=== PATIENT | female | born 1945 | race Caucasian/White ===

== ENCOUNTER 2019-06-18 08:49 | Outpatient (CLI) | payer OTHER ==
[~2019-06-18 08:49] MED LIST: CATAFLAM50 MG PO; FOSAMAX70 MG PO; PROTONIX40 MG PO; SIMVASTATIN40 MG PO; TRAMADOL HCL-AP1 TAB PO
[2019-06-18] MEDS ORDERED: OSPHENA60 MG PO (11:52)
[2019-06-18] MEDS ORDERED: CALTRATE 600+D1 EAC1 PO (11:53)
[2019-06-18] MEDS ORDERED: LIPITOR40 MG PO (11:53)
== END 2019-06-18 10:22 | disposition home or self-care (01) ==
LOC: RAD 08:49 → LAB 08:49
DX: D64.89 Other specified anemias (principal); E88.89 Other specified metabolic disorders; D68.8 Other specified coagulation defects; N39.0 Urinary tract infection, site not specified; Z22.322 Carrier or suspected carrier of Methicillin resistant Staphylococcus aureus; E83.42 Hypomagnesemia; Z76.89 Persons encountering health services in other specified circumstances; I49.8 Other specified cardiac arrhythmias

== ENCOUNTER 2019-07-02 07:52 | Outpatient (CLI) | payer OTHER ==
[~2019-07-02 07:52] MED LIST changes: +CALTRATE 600+D1 EAC1 PO; +LIPITOR40 MG PO; +OSPHENA60 MG PO
== END 2019-07-02 08:15 | disposition home or self-care (01) ==
LOC: LAB 07:52 → RAD 07:52 → LAB 08:15
DX: D64.89 Other specified anemias (principal); E88.89 Other specified metabolic disorders; N39.0 Urinary tract infection, site not specified; D68.8 Other specified coagulation defects; Z22.322 Carrier or suspected carrier of Methicillin resistant Staphylococcus aureus; M79.651 Pain in right thigh; M79.604 Pain in right leg; M17.11 Unilateral primary osteoarthritis, right knee; I49.8 Other specified cardiac arrhythmias

== ENCOUNTER 2019-07-12 09:46 | Inpatient (IN) | payer OTHER ==
[~2019-07-12] VITALS: Ht 152.4 cm; Wt 59.0 kg
== END 2019-07-23 15:39 | disposition home or self-care (01) | DRG 470 ==
LOC: O/R 07-20 05:09 → SURG 07-20 05:09 → SURH 07-20 08:00 → SURG 07-20 14:15
PROVIDERS: ADMIT Orthopaedic Surgery
PROC: 0MNN0ZZ Release Right Knee Bursa and Ligament, Open Approach (ICD-10-PCS; 2019-07-20)
PROC: 0SRC0J9 Replacement of Right Knee Joint with Synthetic Substitute, Cemented, Open Approach (ICD-10-PCS; principal; 2019-07-20 08:00)
DX: M17.11 Unilateral primary osteoarthritis, right knee (principal)

== ENCOUNTER 2019-07-26 07:44 | Emergency (ER) | payer OTHER ==
[~2019-07-26] VITALS: Ht 152.4 cm; Wt 58.1 kg
[2019-07-26] MEDS ORDERED: CARAFATE1 GM (07:59)
[2019-07-26] MEDS ORDERED: PYRIDIUM100 MG PO (10:59)
== END 2019-07-26 11:56 | disposition home or self-care (01) ==
LOC: ER 07:44
DX: N39.0 Urinary tract infection, site not specified (principal)

== ENCOUNTER 2019-07-28 07:24 | Emergency (ER) | payer OTHER ==
[~2019-07-28] VITALS: Ht 152.4 cm; Wt 58.1 kg
[~2019-07-28 07:24] MED LIST changes: +CARAFATE1 GM; +PYRIDIUM100 MG PO
[2019-07-28] MEDS ORDERED: TRAMADOL HCL100 M1 (07:38)
[2019-07-28] MEDS ORDERED: LEVAQUIN PO ×2 (11:06→11:09)
[2019-07-28] MEDS ORDERED: PYRIDIUM100 M1 PO ×2 (11:07→11:09)
== END 2019-07-28 13:48 | disposition home or self-care (01) ==
LOC: ER 07:24
DX: N39.0 Urinary tract infection, site not specified (principal)

== ENCOUNTER 2020-03-17 08:47 | Emergency (ER) | payer OTHER ==
[~2020-03-17] VITALS: Ht 149.9 cm; Wt 59.0 kg
[~2020-03-17 08:47] MED LIST changes: +LEVAQUIN PO; +PYRIDIUM100 M1 PO; +TRAMADOL HCL100 M1
[2020-03-17] MEDS ORDERED: OSPHENA60 MG (09:03)
[2020-03-17] MEDS ORDERED: MANNXTRA300 GM (09:04)
[2020-03-17] MEDS ORDERED: NEXIUM2.5 MG (09:04)
== END 2020-03-17 11:19 | disposition home or self-care (01) ==
LOC: ER 08:47
DX: R51 Headache (principal); J32.8 Other chronic sinusitis

== ENCOUNTER → 2020-09-22 | Outpatient (CLI) | payer OTHER ==
[~2020-09-22] MED LIST changes: +MANNXTRA300 GM; +NEXIUM2.5 MG; +OSPHENA60 MG
== END | disposition home or self-care (01) ==
LOC: PPH VACUNA
PROVIDERS: ATTEND Emergency Medicine Pediatric Emergency Medicine
DX: Z23 Encounter for immunization (principal)

== ENCOUNTER → 2021-01-15 | Emergency (ER) | payer OTHER ==
[~2021-01-15] VITALS: Ht 152.4 cm; Wt 59.9 kg
[~2021-01-15] MED LIST changes: +RESTORIL7.5 MG; +ULTRAM50 MG PO
== END | disposition home or self-care (01) ==
LOC: ER 18:56
DX: S70.02XA Contusion of left hip, initial encounter (principal); S80.02XA Contusion of left knee, initial encounter; W01.198A Fall on same level from slipping, tripping and stumbling with subsequent striking against other object, initial encounter; Y93.01 Activity, walking, marching and hiking; Y92.018 Other place in single-family (private) house as the place of occurrence of the external cause; Y99.8 Other external cause status

== ENCOUNTER 2021-03-12 09:57 | Emergency (ER) | payer OTHER ==
[~2021-03-12] VITALS: Ht 152.4 cm; Wt 59.0 kg
[~2021-03-12 09:57] MED LIST changes: +METHOCARBAMOL500 MG PO
[2021-03-12] MEDS ORDERED: UTIX PO (15:45)
[2021-03-12] MEDS ORDERED: FLUCONAZOLE150 MG PO (15:45)
== END 2021-03-12 16:20 | disposition home or self-care (01) ==
LOC: ER 09:57
DX: N39.0 Urinary tract infection, site not specified (principal)

== ENCOUNTER 2021-05-18 10:16 | Outpatient (CLI) | payer OTHER ==
[~2021-05-18 10:16] MED LIST changes: +FLUCONAZOLE150 MG PO; +UTIX PO
[2021-05-25] MEDS ORDERED: SKELAXIN800 MG PO (10:08)
[2021-06-22] MEDS ORDERED: SKELAXIN800 MG PO (10:42)
== END 2021-05-18 10:20 | disposition home or self-care (01) ==
LOC: PPH VACUNA 10:16
PROVIDERS: ATTEND Emergency Medicine Pediatric Emergency Medicine
DX: Z23 Encounter for immunization (principal)

== ENCOUNTER → 2021-06-12 08:46 | Outpatient (CLI) | payer OTHER ==
[~2021-06-12 08:46] MED LIST changes: +SKELAXIN800 MG PO
== END | disposition home or self-care (01) ==
LOC: LAB 08:46
PROVIDERS: ATTEND Orthopaedic Surgery
DX: M85.88 Other specified disorders of bone density and structure, other site (principal); E55.9 Vitamin D deficiency, unspecified; E21.2 Other hyperparathyroidism; E88.89 Other specified metabolic disorders; M81.8 Other osteoporosis without current pathological fracture; E56.1 Deficiency of vitamin K

== ENCOUNTER 2023-03-07 09:26 | Emergency (ER) | payer OTHER ==
[~2023-03-07] VITALS: Ht 149.9 cm; Wt 56.2 kg
[~2023-03-07 09:26] MED LIST changes: +ATORVASTATIN CA40 MG PO; +DEPO-MEDRO40 MG/1 ML IJ; +LEVOTHYROXINE25 MC1 PO; +METAXALONE800 MG PO
== END 2023-03-07 13:56 | disposition home or self-care (01) ==
LOC: ER 09:26
DX: R53.83 Other fatigue (principal); Z77.29 Contact with and (suspected) exposure to other hazardous substances